=== PATIENT | female | born 1990 | race Two or more races ===

== ENCOUNTER → 2016-10-12 | Outpatient (CLI) | payer OTHER ==
[~2016-10-12] MED LIST: PROTONIX PO
--- NOTE | ~2016-10-12 | MR32 ---
[facility] A Service of [facility] RADIOLOGY TEXT RESULTS PATIENT: SHARMIN RODRIGUEZ LOCATION: [facility] : 92 UNIT #: [id number] AGE: [address]: ELODIA EDMONDS APRN SEX: F ORDER DR: [id number] [facility] [address] [place], [place] [address] [id number] O MR#: [id number] Acc #: [id number] NAME: SHARMIN RODRIGUEZ : 1990 SEX: F STUDY DATE/TIME: 10/12/2016 15:34 UNIT: [facility] ROOM: STUDY DESCRIPTION: MR Cervical Wo Contrast Attending Physician: Elodia Edmonds Np Referring Physician: Elodia Edmonds Np Ordering Physician: Elodia Edmonds Np Primary Care Physician: Bianca Ribeiro M.D. MRI CENTER REPORT This report is preliminary unless electronic signature is present. EXAM Cervical MRI HISTORY Right arm numbness and tingling, accompanied by neck pain beginning 2 weeks ago. TECHNIQUE Multiplanar imaging cervical spine was performed with short and long TR. FINDINGS Cervical straightening is noted. There is minimal posterior disc bulging seen at C4-5 and C5-6 with wide patency of the canal and foramina. There is no evidence of cervical disc herniation. No exiting nerve root compression is seen. The cervical cord is normal in size and signal. There is no evidence of marrow edema or paraspinous mass. IMPRESSION Cervical straightening with minimal central disc bulging C4-5 and C5-6. Essentially negative cervical MRI. Dictated by... Chun Hamm M.D. THIS IS AN ELECTRONICALLY VERIFIED REPORT Chun Hamm M.D. at 10/13/2016 4:52 PM ELVER/tyshawn TD: 10/13/2016 15:33 JOB #: [id number] MRI CENTER REPORT [facility] A Service of [facility] RADIOLOGY TEXT RESULTS PATIENT: SHARMIN RODRIGUEZ LOCATION: [facility] : 92 UNIT #: [id number] AGE: [address]: ELODIA EDMONDS APRN SEX: F ORDER DR: Page 1 of 1 COPY
== END | disposition home or self-care (01) ==
LOC: CMRI 14:31
DX: M54.2 Cervicalgia (principal); M50.821 Other cervical disc disorders at C4-C5 level; M50.822 Other cervical disc disorders at C5-C6 level
CPT/HCPCS: 72141

== ENCOUNTER → 2016-10-28 | Outpatient (CLI) | payer OTHER ==
--- NOTE | ~2016-10-28 | MR113 ---
[facility] A Service of [facility] RADIOLOGY TEXT RESULTS PATIENT: SHARMIN RODRIGUEZ [facility] UNIT #: [id number] AGE: [address]: ELODIA EDMONDS APRN SEX: F ORDER DR: [id number] [facility] [address] [place], [place] [address] [id number] O MR#: [id number] Acc #: [id number] NAME: SHARMIN RODRIGUEZ : 1990 SEX: F STUDY DATE/TIME: 10/28/2016 19:13 UNIT: [facility] ROOM: STUDY DESCRIPTION: MR Lumbar Wo Contrast Attending Physician: Elodia Edmonds Np Referring Physician: Elodia Edmonds Np Ordering Physician: Elodia Edmonds Np Primary Care Physician: Bianca Ribeiro M.D. MRI CENTER REPORT This report is preliminary unless electronic signature is present. EXAM MRI lumbar spine without contrast. INDICATION Lower back pain after for the past 3 years. Pain extends into the left leg. Symptoms worsening over the past month. PROCEDURE Sagittal and axial T1 and T2-weighted imaging of the lumbar spine without contrast. COMPARISON None FINDINGS Lumbar bodies have normal height. Alignment is preserved. Conus terminates at L1 and has normal caliber and signal intensity. No abnormal paravertebral mass. There is degenerative disc signal at L5-S1. Otherwise disc signal is preserved. L1-L2: No central canal or neural foraminal narrowing. L2-L3: No central canal or neural foraminal narrowing. L3-L4: No central canal or neural foraminal narrowing. L4-L5: Very mild broad-based posterior disc bulge with a tiny annular fissure in the central region. There is mild facet change with mild central canal narrowing. No significant neural foraminal narrowing. L5-S1: There is a broad-based disc bulge with a superimposed central disc extrusion. Disc extrusion measures approximately 1.4 cm in craniocaudal extent and has minimal extension along the posterior margins of L5 as well [facility] A Service of [facility] RADIOLOGY TEXT RESULTS PATIENT: SHARMIN RODRIGUEZ LOCATION: [facility] : 92 UNIT #: [id number] AGE: [address]: ELODIA EDMONDS APRN SEX: F ORDER DR: as S1. There is no contact or significant mass effect on traversing nerve roots. There is mild facet change with moderate central canal narrowing. There is moderate bilateral neural foraminal narrowing related to foraminal disc osteophyte and facet change. IMPRESSION 1. Degenerative disc disease at L5-S1 and L4-L5 as detailed above. There is a central disc extrusion at L5-S1 with mild cranial and caudal extension. There is no mass affect on traversing nerve roots. 2. At least moderate bilateral neural foraminal narrowing at L5-S1 related to degenerative disc disease and facet change. Dictated by... Khalif Anaya M.D. THIS IS AN ELECTRONICALLY VERIFIED REPORT Khalif Anaya M.D. at 11/02/2016 11:07 AM TIM/pina TD: 10/29/2016 12:39 JOB #: [id number] MRI CENTER REPORT Page 1 of 1 COPY
== END | disposition home or self-care (01) ==
LOC: CMRI 18:17
DX: M54.5 Low back pain (principal); M51.26 Other intervertebral disc displacement, lumbar region; M51.36 Other intervertebral disc degeneration, lumbar region; M99.83 Other biomechanical lesions of lumbar region
CPT/HCPCS: 72148